=== PATIENT | male | born 1985 | race Caucasian/White ===

== ENCOUNTER 2019-05-11 22:22 | Observation (INO) ==
[2019-05-12] MEDS ORDERED: KETOROLAC 30 MG/1 ML VIAL IV STA (01:43)
[2019-05-12] MEDS ORDERED: ONDANSETRON 4 MG/2 ML VIAL IV STA (01:43)
[2019-05-12 02:28] LABS: Basophils % 0.2 % (0.0-0.8); Eosinophils # 0.1 10*3/uL (0.0-0.87); Eosinophils % 0.8 % (0.00-10.9); Hemoglobin 16.1 GM/DL (14.0-18.0); Immature Granulocytes % 0.6 %; Immature Granulocytes Absolute 0.11 #; Lymphocytes # 1.4 10*3/uL (1.4-4.0); Lymphocytes % 7.8 % (21.2-54.2); Mean Corpuscular Volume 101.8 FL (87-102); Mean Platelet Volume 10.4 FL (9.6-12.0); Monocytes % 8.1 % (1.7-12.7); Neutrophils % 82.5 % (38.7-73.9); Platelet Count 176 T/CUMM (130-400); Red Blood Count 4.52 MC/CUMM (3.8-5.5); Red Cell Distribution Width 12.5 % (9.3-17.3); White Blood Count 18.1 T/CUMM (4-12)
[2019-05-12 02:32] LABS: Albumin 3.8 G/DL (3.4-5.0); Bilirubin,Total 0.7 MG/DL (0.2-1.0); Osmolality,Calculated 266.2 MOS/KG (273-304); Total Protein 7.7 G/DL (6.4-8.3)
[2019-05-12 03:15] LABS: Apearance,Urine CLEAR (Clear); Bilirubin,Urine Negative (Negative); Blood, Urine Moderate mg/dL (Negative); Glucose,Urine (UA) Negative (Negative); Hyaline Casts,Urine 1 /LPF (0-3); Ketones,Urine 80 mg/dL (Negative); Mucus,Urine Occasional /LPF (Occasional); Nitrite,Urine Negative (Negative); Protein,Urine Negative; RBC,Urine 5 /HPF (0-4); Urine Color Yellow (Yellow); Urine Specific Gravity 1.018 (1.001-1.035); Urine Urobilinogen < 2.0 EU/DL (0.2-1.0); WBC,Urine <1 /HPF (0-6)
[2019-05-12] MEDS ORDERED: SODIUM CHLORIDE 0.9% 1,000 ML IV STA (04:44)
[2019-05-12] MEDS ORDERED: ONDANSETRON 4 MG/2 ML VIAL IV PRN (05:58)
[2019-05-12] MEDS ORDERED: PROMETHAZINE 25 MG/1 ML VIAL IM PRN (05:58)
[2019-05-12] MEDS ORDERED: NICOTINE 21 MG/24 HR PATCH TRANSDERM PRN (05:58)
[2019-05-12] MEDS ORDERED: SODIUM CHLORIDE 0.9% 1,000 ML IV SCH (06:00)
[2019-05-12] MEDS ORDERED: SODIUM CHLORIDE 0.9% 1,000 ML IV ONE (06:59)
[2019-05-12 07:01] LABS: Risk Ratio 4.23; VLDL CHOLESTEROL 20.4 MG/DL
[2019-05-12] MEDS: SODIUM CHLORIDE 0.9% 1,000 ML IV SCH ×4 (08:27→22:14)
[2019-05-12 08:51] LABS: Barbiturates Screen,Urine Negative (Negative); Benzodiazepines Screen,Urine Negative (Negative); Cannabinoid Screen,Urine Negative (Negative); Opiate Screen,Urine Negative (Negative); Phencyclidine Screen,Urine Negative (Negative)
[2019-05-12 10:16] LABS: Hepatitis B Core IgM Quant 0.09 Index; Hepatitis B Surface Ag Quant 0.11 Index; Hepatitis B Surface Ag Result Negative (Negative); Hepatitis C Virus Ab Quant < 0.02 Index; Hepatitis C Virus Ab Result Negative (Negative)
[2019-05-12] MEDS: MORPHINE 4 MG/1 ML VIAL IV PRN ×2 (11:39→18:21)
[2019-05-12] MEDS ORDERED: ACETAMINOPHEN 325 MG TABLET PO PRN (18:40)
[2019-05-13] MEDS: SODIUM CHLORIDE 0.9% 1,000 ML IV SCH ×3 (04:45→21:44)
[2019-05-13 06:58] LABS: Albumin 2.8 G/DL (3.4-5.0); Bilirubin,Total 0.7 MG/DL (0.2-1.0); Calcium 8.1 MG/DL (8.5-10.1); Osmolality,Calculated 276.4 MOS/KG (273-304); Total Protein 6.2 G/DL (6.4-8.3)
[2019-05-13 07:35] LABS: Basophils % 0.2 % (0.0-0.8); Eosinophils # 0.1 10*3/uL (0.0-0.87); Eosinophils % 0.9 % (0.00-10.9); Hematocrit 39.5 VOL% (42.0-52.0); Hemoglobin 13.5 GM/DL (14.0-18.0); Immature Granulocytes % 0.9 %; Immature Granulocytes Absolute 0.13 #; Lymphocytes # 1.6 10*3/uL (1.4-4.0); Lymphocytes % 10.9 % (21.2-54.2); Mean Corpuscular HGB Conc 34.2 GM/DL (32-36); Mean Corpuscular Volume 104.2 FL (87-102); Mean Platelet Volume 10.7 FL (9.6-12.0); Monocytes % 7.8 % (1.7-12.7); Neutrophils % 79.3 % (38.7-73.9); Platelet Count 148 T/CUMM (130-400); Red Blood Count 3.79 MC/CUMM (3.8-5.5); Red Cell Distribution Width 12.6 % (9.3-17.3)
[2019-05-13] MEDS: MORPHINE 4 MG/1 ML VIAL IV PRN (19:42)
[2019-05-14] MEDS: SODIUM CHLORIDE 0.9% 1,000 ML IV SCH (05:49)
[2019-05-14 05:56] LABS: Basophils % 0.2 % (0.0-0.8); Eosinophils # 0.3 10*3/uL (0.0-0.87); Eosinophils % 2.2 % (0.00-10.9); Hematocrit 38.2 VOL% (42.0-52.0); Hemoglobin 13.5 GM/DL (14.0-18.0); Immature Granulocytes % 0.7 %; Immature Granulocytes Absolute 0.09 #; Lymphocytes # 1.8 10*3/uL (1.4-4.0); Lymphocytes % 14.8 % (21.2-54.2); Mean Corpuscular HGB Conc 35.3 GM/DL (32-36); Mean Corpuscular Volume 101.1 FL (87-102); Neutrophils % 74.1 % (38.7-73.9); Platelet Count 143 T/CUMM (130-400); Red Blood Count 3.78 MC/CUMM (3.8-5.5); Red Cell Distribution Width 12.4 % (9.3-17.3)
[2019-05-14 06:14] LABS: Calcium 7.8 MG/DL (8.5-10.1); Osmolality,Calculated 272.7 MOS/KG (273-304)
[2019-05-14 06:25] LABS: Folate 7.2 NG/ML (5.4-24.0)
[2019-05-14 11:22] VITALS: BP 137/75
== END 2019-05-14 11:30 | disposition home or self-care (01) ==
LOC: N.ED 22:22 → N.EDINP 22:22 → N.2E 05-12 06:53
PROVIDERS: ADMIT Internal Medicine; ATTEND Internal Medicine